=== PATIENT | male | born 1950 | race Caucasian/White ===

== ENCOUNTER → 2016-11-23 | Outpatient (CLI) | payer OTHER ==
--- NOTE | ~2016-11-23 | MR154 ---
[facility] A Service of [facility] & [facility] RADIOLOGY TEXT RESULTS PATIENT: JOSEPH HILLS LOCATION: [facility] : 50 UNIT #: [id number] AGE: [address]: Dewayne Paulino MD SEX: M ORDER DR: [id number] [facility] [address] [place], [place] [address] [id number] O MR#: [id number] Acc #: [id number] NAME: JOSEPH HILLS : 1950 SEX: M STUDY DATE/TIME: 11/23/2016 12:56 UNIT: [facility] ROOM: STUDY DESCRIPTION: MR Pituitary Only WWo Cont Attending Physician: Dewayne Paulino M.D. Referring Physician: Dewayne Paulino M.D. Ordering Physician: Dewayne Paulino M.D. Primary Care Physician: Tan James M.D. MRI CENTER REPORT This report is preliminary unless electronic signature is present. EXAM MRI of the pituitary gland with and without contrast. DATE OF EXAM 11/23/2016 COMPARISON MRI of the pituitary gland with and without contrast dated 06/05/2016. HISTORY Follow up pituitary tumor. No new symptoms. FINDINGS Multisequence, multiplanar imaging through the sella and the pituitary gland were obtained with and without contrast. Redemonstrated is the homogeneously enhancing solid mass in the sella extending to the suprasellar region with suspicious tiny cystic components involving the superior aspect, stable. It measures 2.2 x 3.1 x 2.4 cm. It is stable when compared to the previous study form last year. There is stable invasion of the right cavernous sinus and suprasellar cistern. It abuts the left cavernous sinus without significantly invading it. Bilateral cavernous ICA are intact without narrowing. Pituitary stalk is deviated to the left, enlarged but stable when compared to the previous study. Pituitary stalk measures about 4 mm in transverse maximum thickness. There is mass effect in the inferior aspect of the optic chiasm and bilateral prechiasmatic optic nerves. The right side of the chiasm and the nerve appears to be smaller when compared to the left side, suspicious for mild atrophy, stable. Visualized remaining brain does not demonstrate any significant abnormality on this limited evaluation. IMPRESSION 1. No significant interval change. [facility] A Service of [facility] & [facility] RADIOLOGY TEXT RESULTS PATIENT: JOSEPH HILLS LOCATION: [facility] : 50 UNIT #: [id number] AGE: [address]: Dewayne Paulino MD SEX: M ORDER DR: 2. 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 3. There is invasion of the right cavernous and mass effect in the optic chiasm and prechiasmatic optic nerves particularly on the right side with some associated atrophy. Stable. Dictated by... Sourav Peterson M.D. THIS IS AN ELECTRONICALLY VERIFIED REPORT Sourav Peterson M.D. at 11/24/2016 12:44 PM CPR/jt TD: 11/23/2016 23:24 JOB #: [id number] MRI CENTER REPORT COPY
[2016-11-23 14:01] LABS: POC - CREATININE 1.07 mg/dL (0.64-1.27); POC - GFR >60.0 mL/min (>60)
== END | disposition home or self-care (01) ==
LOC: CMRI 12:04
PROVIDERS: Neurological Surgery
DX: D49.7 Neoplasm of unspecified behavior of endocrine glands and other parts of nervous system (principal)
CPT/HCPCS: 70553; 82565; A9577